=== PATIENT | female | born 1955 | race Asian ===

== ENCOUNTER 2016-12-22 09:17 | Day surgery (SDC) | payer OTHER ==
[2016-12-17 13:22] VITALS: BMI 29.2
[2016-12-22] MEDS ORDERED: DEXAMETHASONE SOD PHOSPHATE/PF 10 MG/ML SDV ONE (10:06)
[2016-12-22] MEDS ORDERED: ROPIVACAINE HCL 0.5% 30ML VIAL ONE (10:06)
[2016-12-22] MEDS ORDERED: LIDOCAINE HCL 1%, 10 MG/ML (20ML VIAL) ONE ×3 (10:06→13:31)
[2016-12-22] MEDS ORDERED: MIDAZOLAM HCL 2 MG/2 ML SINGLE DOSE VIAL ONE ×2 (11:52)
[2016-12-22] MEDS ORDERED: PROPOFOL 20 ML ONE ×3 (13:05→13:41)
[2016-12-22] MEDS ORDERED: ISOSULFAN BLUE 10 MG/ML VIAL SQ ONE (13:08)
[2016-12-22] MEDS ORDERED: ePHEDrine SULFATE 50 MG/1 ML AMPULE ONE (13:13)
[2016-12-22] MEDS ORDERED: ceFAZolin SODIUM 1 GM VIAL IVPB ONE (13:14)
[2016-12-22] MEDS ORDERED: LIDOCAINE HCL 1%, 10 MG/ML (20ML VIAL) IJ ONE ×2 (13:14→13:40)
[2016-12-22] MEDS ORDERED: ceFAZolin SODIUM 1 GM VIAL ONE (13:17)
[2016-12-22] MEDS ORDERED: DEXAMETHASONE SOD PHOSPHATE 4 MG/1 ML VIAL ONE (13:43)
[2016-12-22] MEDS ORDERED: KETOROLAC TROMETHAMINE 30 MG/1 ML VIAL ONE (13:43)
[2016-12-22] MEDS ORDERED: ONDANSETRON 4 MG/2 ML VIAL IVPUSH PRN (14:03)
[2016-12-22] MEDS ORDERED: oxyCODONE HCL 5 MG TABLET PO PRN (14:03)
[2016-12-22] MEDS ORDERED: LACTATED RINGERS SOLUTION 1,000 ML IV SCH (14:15)
[2016-12-22 17:58] VITALS: BP 116/50; PULSE 82; TEMP 97.8
--- NOTE | 2016-12-22 18:02 | OP ---
DATE OF OPERATION: 12/22/2016 PREOPERATIVE DIAGNOSIS: Left breast cancer. POSTOPERATIVE DIAGNOSIS: Left breast cancer. PROCEDURE: Left breast ultrasound-guided wire-localized lumpectomy and sentinel node biopsy. SURGEON: Larissa Tam MD ANESTHESIA: Paravertebral block and IV sedation. ESTIMATED BLOOD LOSS: Minimal. COMPLICATIONS: None. DISPOSITION: Stable at the end of procedure. INDICATIONS FOR PROCEDURE: Patient presented with a screening mammogram and ultrasound that noted a 2.2-cm spiculated density in the upper left breast, on ultrasound it appeared to be a solid irregular mass. A needle biopsy showed invasive carcinoma. My recommendation was a lumpectomy and a sentinel node biopsy. The procedure was discussed with all the questions answered. PROCEDURE IN DETAIL: Patient was brought to [facility] in [place] and taken to nuclear medicine where technetium level sulfur colloid was injected by the radiologist in the left breast, 12 o'clock areola border as an intradermal injection. She was then brought up to the operating room, and after a paravertebral block, she was taken into the operating room, and IV sedation and IV antibiotics , a left breast ultrasound was performed. The lesion in the left 12 o'clock location 2 cm from the nipple was identified. Using Betadine and 1% lidocaine, a [place] wire was used to localize this mass. Once this was completed, 5 mL of isosulfan blue dye was injected into the left subareolar plexus, and the breast was massaged for 5 minutes. Next, a left breast and axilla were prepped and draped in the usual sterile fashion. A 4-cm incision was made in the left axilla, carried down through the clavipectoral fascia to identify a blue and hot lymph node. There was a 2nd lymph not far from this that came with it, as well. This was sent as left axillary sentinel node No. 1, blue and hot. There was no other blue dye or radioactivity or pathologic feeling lymph nodes in the left axilla. Therefore, then, the left lumpectomy was performed. An ellipse of skin was taken radially ion the 12-thirty location from the areolar border extending up, and the wire was used as a guide to get down to the area of interest, which was excised en bloc, tagged with a long stitch lateral, short stitch superiorly, sent as a left breast lumpectomy. There was a wide defect left after this lumpectomy. Therefore, superior, medial, and lateral flaps were raised. An intraoperative ultrasound was performed over the lumpectomy, and margins appeared adequate. The lumpectomy specimen was then sent to Pathology for permanent section. Once hemostasis was assured with electrocautery, there was a tissue transfer procedure performed with superior, inferior, medial, and lateral flaps were raised, and the parenchyma was approximated in 2 layers with interrupted 2-0 Vicryl. Skin approximated to fill in the 10 cm x 6 cm defect in the lumpectomy cavity. Once the parenchyma was approximated, the skin was approximated with interrupted 3-0 Vicryl and running 4-0 Biosyn. A sterile dressing with Tegaderm was applied. The axillary incision was also closed in a routine fashion with interrupted 3-0 Vicryl and running 4-0 Biosyn. A sterile dressing with Tegaderm and 4x4s applied. She tolerated the procedure well, was taken to recovery in good condition. Jessi [id number] MTDD
--- NOTE | 2016-12-27 15:04 | PATH ---
Surgical Pathology Report Patient Name: YULY DALAL [facility]. Rec. #: [id number] /Age/Gender: 1955 (Age: 61) / F Account: [id number] Location: [facility] Taken: 12/23/2016 Received: 12/23/2016 Reported: 12/27/2016 Physicians: Larissa Tam M.D. Specimen(s) Received A: LEFT AXILLARY SENTINEL LYMPH NODE B: LEFT BREAST MASS Clinical History Invasive Final Diagnosis A. SENTINEL LYMPH NODE, LEFT AXILLARY, BIOPSY: ONE LYMPH NODE, POSITIVE FOR METASTATIC CARCINOMA (04/18). SIZE OF THE LARGEST TUMOR DEPOSIT: 0.5 MM (MICROMETASTASIS). EXTRANODAL EXTENSIONS: NOT IDENTIFIED. Comment: Immunohistochemical stain for Ae1/Ae3 keratin performed and interpreted at [facility] on block A3 highlights focal keratin positive metastatic tumor deposit. B. BREAST, LEFT, LUMPECTOMY: INVASIVE DUCTAL CARCINOMA, MODERATELY DIFFERENTIATED, WITH FOCAL MICROPAPILLARY FEATURES ([place] HISTOLOGIC SCORE OF 6: TUBULE FORMATION 2 OF 3, NUCLEAR PLEOMORPHISM 2 OF 3, MITOTIC RATE 2 OF 3). INVASIVE CARCINOMA FOCALITY AND SIZE: SINGLE FOCUS, 2.7 CM (GROSS MEASUREMENT). DUCTAL CARCINOMA IN SITU (DCIS), INTERMEDIATE NUCLEAR GRADE, CRIBRIFORM TYPE, WITH FOCAL NECROSIS. DCIS EXTENT: DCIS IS MINOR (<25%), PRESENT IN ASSOCIATION WITH INVASIVE CARCINOMA AND FOCALLY AWAY FROM IT. SURGICAL RESECTION MARGINS: INVASIVE CARCINOMA IS FOCALLY <1 MM FROM THE SUPERIOR RESECTION MARGIN, LYMPHATIC EMBOLI ARE <1 MM FROM THE DEEP MARGIN; DCIS IS LESS THAN 1 MM FROM THE SUPERIOR MARGIN AND FOCALLY FROM THE DEEP MARGIN. PRIOR BIOPSY SITE CHANGES PRESENT. LYMPHOVASCULAR INVASION: PRESENT, EXTENSIVE, WITH LYMPHATIC EMBOLI. PERINEURAL INVASION: FOCALLY SUSPICIOUS. SKIN: NOT INVOLVED BY CARCINOMA. SURROUNDING BREAST TISSUE: SMALL INTRADUCTAL PAPILLOMA, FIBROCYSTIC CHANGES FOCAL USUAL DUCTAL HYPERPLASIA, COLUMNAR CELL CHANGE, AND STROMAL FIBROSIS. PATHOLOGIC STAGING: pT2 pN1mi(sn) (ALSO REFER TO CHECKLIST BELOW). RECEPTOR STATUS: REFER TO CHECKLIST BELOW. Comment: Immunohistochemical stain for E-cadherin performed and interpreted at [facility] on block B1 shows membranous staining in tumor cells supporting ductal phenotype. Comments Breast Invasive Carcinoma: Surgical Pathology Cancer Case Summary Based on AJCC/UICC TNM, 7th edition Procedure _x_ Excision with image-guided localization Lymph Node Sampling _x_ [place] lymph node Specimen Laterality _x_ Left Tumor Size: Size of Largest Invasive Carcinoma Greatest dimension of largest focus of invasion over 1 mm: 2.7 cm (27 mm) Tumor Focality _x_ Single focus of invasive carcinoma Macroscopic and Microscopic Extent of Tumor Skin _x_ Invasive carcinoma does not invade into the dermis or epidermis Nipple _x_ Not applicable (excisions less than total mastectomy) Skeletal Muscle _x_ No skeletal muscle present Ductal Carcinoma In Situ (DCIS) _x_ DCIS is present _x_ as a minor component (< 25% of tumor) Histologic Type of Invasive Carcinoma: _x_ Invasive ductal carcinoma with focal micropapillary features Histologic Grade: ([place] Histologic Score) Tubular Differentiation _x_ Score 2 Nuclear Pleomorphism _x_ Score 2 Mitotic Rate _x_ Score 2 Overall Grade _x_ Grade 2: scores of 6 (moderately differentiated) Margins _x_ Margin close to (< 1 mm) invasive carcinoma: superior and deep margins (deep margin is close to lymphatic emboli) _x_ Margin close to (< 1 mm) DCIS: superior and focally deep margins Lymph-Vascular Invasion _x_ Present, extensive Lymph Nodes Total number of lymph nodes examined (sentinel and nonsentinel): 1 Number of sentinel lymph nodes examined: 1 Number of lymph nodes with macrometastases (> 2 mm): 0 Number of lymph nodes with micrometastases (>0.2 mm to 2 mm and/or >200cells):1 Number of lymph nodes with isolated tumor cells (=0.2 mm and =200 cells): 0 Size of largest metastatic deposit (if present): 0.5 mm Extranodal Extension _x_ Not identified Pathologic Staging (pTNM) Primary Tumor (Invasive Carcinoma): pT2 Regional Lymph Nodes (pN): pN1mi(sn) Distant Metastasis (pM): not applicable Biomarker Studies Results of ER and NM studies performed on this specimen (block B1) at [facility] are as follows: ER (clone [id number] mouse monoclonal antibody by [employer]): >95% nuclear staining with strong intensity (POSITIVE). NM (clone16 mouse monoclonal antibody by [employer]): >95% nuclear staining with strong to moderate intensity (POSITIVE). Results of Her2 ans Ki67 studies will be reported separately in an addendum. Positive and negative controls (internal if applicable) show appropriate results. Formalin fixation and cold ischemic times are within current ASCO/CAP recommendations for ER, NM and Her2 testing. Electronically Signed Erwin Washington M.D. Addendum Reported: 12/28/2016 Addendum Diagnosis Results of Her2 (IHC) & Ki-67 studies performed on block B1 at [place], [place] ([id number]) are as follows: Her2 IHC (EP3 from [employer], formerly known as [id number], using [employer]ments Polymer Refine detection kit): 0 (NEGATIVE) Ki-67: ~30-35% (High proliferation index) Positive and negative controls (internal if applicable) show appropriate results Erwin Washington M.D. Gross Description A. Received in formalin labeled "left axillary lymph node" is a 4.0 x 1.2 x 0.6 cm sun, irregular lymph node with attached fat. The specimen is sectioned and entirely submitted in 4 cassettes. B. Received in formalin, labeled "left breast lumpectomy" is a 7.5 x 5.7 x 4.4 cm sun-yellow irregular portion of fibroadipose tissue with a needle localization wire present. There is a short suture marking the superior aspect and a long suture marking the lateral aspect, per the surgeon. The anterior surface displays a 4.0 x 1.0 cm sun, elliptical, unremarkable portion of skin. The specimen is inked as follows: Superior blue; inferior green; lateral red; medial yellow; deep black. The specimen is serially sectioned from medial to lateral. Sectioning reveals a 2.7 x 2.2 x 1.7 cm sun, indurated mass grossly at 0.3 cm from the superior margin. Excavator Operator sections are submitted in 8 cassettes as follows: 1-2-one full-face section of mass each (each with superior margin); 3-skin; 4-5-mass with deep margin; 6-inferior margin; 7-medial margin; 8-lateral margin. Time to fixation: <1h Total formalin fixation time: ~24h 12/23/201612/23/2016
== END 2016-12-22 16:30 | disposition home or self-care (01) ==
LOC: JASU-SURG 09:17
PROVIDERS: ATTEND Surgery
PROC: 0HBU0ZZ Excision of Left Breast, Open Approach (ICD-10-PCS; principal; 2016-12-22 12:00)
DX: C50.912 Malignant neoplasm of unspecified site of left female breast (principal)
CPT/HCPCS: 78195-TC; 88307-TC; 88342-TC; 94760; A9541

== ENCOUNTER 2017-01-11 12:14 | Day surgery (SDC) | payer OTHER ==
[2017-01-11 13:37] VITALS: BMI 29.2
[2017-01-11] MEDS ORDERED: DEXAMETHASONE SOD PHOSPHATE/PF 10 MG/ML SDV ONE (14:55)
[2017-01-11] MEDS ORDERED: ROPIVACAINE HCL 0.5% 30ML VIAL ONE (14:55)
[2017-01-11] MEDS ORDERED: MIDAZOLAM HCL 2 MG/2 ML SINGLE DOSE VIAL ONE ×2 (14:57)
[2017-01-11] MEDS ORDERED: SODIUM CHLORIDE 0.9% P/F 10 ML VIAL IJ ONE (15:03)
[2017-01-11] MEDS ORDERED: LIDOCAINE HCL/PF 2% SDV 5ML VIAL ONE (15:03)
[2017-01-11] MEDS ORDERED: PROPOFOL 20 ML ONE ×3 (16:30→16:55)
[2017-01-11] MEDS ORDERED: ceFAZolin SODIUM 1 GM VIAL IVPB ONE (16:33)
[2017-01-11] MEDS ORDERED: DEXAMETHASONE SOD PHOSPHATE 4 MG/1 ML VIAL ONE (16:55)
[2017-01-11] MEDS ORDERED: ceFAZolin SODIUM 1 GM VIAL ONE (16:55)
[2017-01-11] MEDS ORDERED: LACTATED RINGERS SOLUTION 1,000 ML IV SCH (18:00)
[2017-01-11] MEDS ORDERED: ONDANSETRON 4 MG/2 ML VIAL IVPUSH PRN (18:00)
[2017-01-11] MEDS ORDERED: oxyCODONE HCL 5 MG TABLET PO PRN (18:00)
[2017-01-11] MEDS ORDERED: ONDANSETRON 4 MG/2 ML VIAL ONE (18:20)
[2017-01-11 19:33] VITALS: TEMP 97.6
[2017-01-11 19:50] VITALS: BP 104/59; PULSE 89
--- NOTE | 2017-01-13 10:16 | OP ---
DATE OF OPERATION: 01/11/2017 PREOPERATIVE DIAGNOSIS: Left breast cancer with positive sentinel lymph node. POSTOPERATIVE DIAGNOSIS: Left breast cancer with positive sentinel lymph node. PROCEDURE PERFORMED: Left complete axillary node dissection, and left re- excision lumpectomy with primary reconstruction. SURGEON: Larissa Tam MD ANESTHESIA: Paravertebral block and sedation. ESTIMATED BLOOD LOSS: Minimal. COMPLICATIONS: None. DISPOSITION: Stable at the end of the procedure. INDICATIONS FOR PROCEDURE: The patient had a left lumpectomy and sentinel node biopsy. The sentinel lymph node was positive. Therefore, my recommendation was a completion node dissection. She had close margins posteriorly and superiorly. Therefore, my recommend was a re-excision lumpectomy. The procedure was discussed and all of her questions answered. DESCRIPTION OF PROCEDURE: The patient was brought to [facility] and brought to the holding area, where a paravertebral block was done by the anesthesiologist. She was brought into the operating room. After IV sedation, the left breast and axilla were prepped and draped in the usual sterile fashion. First, axillary node dissection was performed. The incision in the left axilla was sharply opened through the clavipectoral fascia to do a completion node dissection. Care was taken to preserve the long thoracic and the thoracodorsal neurovascular bundles. The entire contents were sent as left axillary contents. There were no other pathologic feeling lymph nodes in the axilla. Hemostasis was assured with electrocautery and Hemoclips. She tolerated the procedure well. Next, left re-excision lumpectomy was performed. The prior incision from the lumpectomy was reopened sharply. Cautery was used to get into the lumpectomy cavity. A new superior margin was taken. This was tagged with a stitch at the new margin and sent to Pathology for permanent section. I also took a new posterior margin with a stitch at the old margin and sent it to Pathology for permanent section. Once this was completed, there was a large defect left from the lumpectomy. Therefore, superior, inferior and lateral flaps were raised, and a tissue transfer procedure was performed to close the lumpectomy cavity in 3 layers with interrupted 2-0 Vicryl. The skin was reapproximated with interrupted 3-0 Vicryl and running 4-0 Prolene. Through a separate stab wound, a 10-mm AMIRAH drain was placed into the left axilla and secured to the skin with a 3-0 nylon stitch. The axillary incision was then closed in a routine fashion with interrupted 3-0 Vicryl and running 4-0 Prolene. A sterile dressing of Tegaderm and 4 x 4 was applied. The patient tolerated the procedure well and was taken to Recovery in good condition. Jessi [id number] MTDD
--- NOTE | 2017-01-14 15:27 | PATH ---
Surgical Pathology Report Patient Name: YULY DALAL [facility]. Rec. #: [id number] /Age/Gender: 1955 (Age: 61) / F Account: [id number] Location: AMBULATORY SURG Taken: 01/11/2017 Received: 01/12/2017 Reported: 01/14/2017 Physicians: Larissa Tam M.D. Specimen(s) Received A: LEFT AXILLARY CONTENTS B: LEFT BREAST NEW POSTERIOR MARGIN STITCH MIRANDA OLD MARGIN C: LEFT BREAST NEW SUPERIOR MARGIN STITCH MIRANDA NEW MARGIN Clinical History Left breast cancer Final Diagnosis A. AXILLARY CONTENTS, LEFT, DISSECTION: FIVE LYMPH NODES NEGATIVE FOR METASTATIC CARCINOMA (0/5). EXTENSIVE PRIOR SURGICAL SITE CHANGES PRESENT. B. BREAST, LEFT, NEW POSTERIOR MARGIN, EXCISION: FATTY BREAST TISSUE WITH PRIOR SURGICAL SITE CHANGES. NO RESIDUAL INVASIVE OR IN SITU CARCINOMA IDENTIFIED. C. BREAST, LEFT, NEW SUPERIOR MARGIN, EXCISION: FOCAL RESIDUAL DUCTAL CARCINOMA IN SITU (DCIS), INTERMEDIATE NUCLEAR GRADE, CRIBRIFORM TYPE; DCIS IS PRESENT ON 1 OF 8 EXAMINED SLIDES WITH THE GREATEST EXTENT OF 0.5 MM. NO INVASIVE CARCINOMA IDENTIFIED. SURGICAL RESECTION MARGIN: NEGATIVE FOR DCIS; DCIS IS 0.5 CM FROM THE INKED NEW SUPERIOR MARGIN. EXTENSIVE PRIOR SURGICAL SITE CHANGES PRESENT. Comment: Refer to [id number] for the prior pathology results. Electronically Signed Erwin Washington M.D. Gross Description A. Received in formalin, labeled "left axillary contents" is a 6.5 x 5.5 x 3.0 cm in aggregate dimension fragments of sun-yellow fatty tissue. The specimen is dissected to reveal several lymph nodes and fat necrosis. [employer] Farmworker sections are submitted as follows: 1 -two whole lymph nodes, 2 -one trisected lymph node, 3- one trisected lymph node, 6-8-[id number] fat necrosis B. Received in formalin, labeled "new posterior margin" is a 7.5 x 3 x 1 cm fragments are sun-yellow fibrofatty tissue the skin designating old margin per surgeon. The aspect opposite to the stitch is inked blue. The specimen is serially sectioned and entirely submitted in eight cassettes. C. Received in formalin, labeled "left breast mass superior margin" is a 5.0 x 3.5 x 1.2 cm portion open sun-yellow fibrofatty tissue with a stitch designating new margin per surgeon. The aspect of the stitch is inked blue. The specimen is serially sectioned and entirely submitted in eight cassettes. AF/01/12/2017 final01/12/2017
== END 2017-01-11 19:50 | disposition home or self-care (01) ==
LOC: JASUSAT 12:14
PROVIDERS: ATTEND Surgery
PROC: 0HBU0ZZ Excision of Left Breast, Open Approach (ICD-10-PCS; principal; 2017-01-11 14:00)
PROC: 07B60ZX Excision of Left Axillary Lymphatic, Open Approach, Diagnostic (ICD-10-PCS; 2017-01-11 14:00)
DX: C50.912 Malignant neoplasm of unspecified site of left female breast (principal)
CPT/HCPCS: 88307-TC; 94760